=== PATIENT | female | born 1935 | race Caucasian/White ===

== ENCOUNTER → 2017-05-29 | Outpatient (CLI) | payer MEDICARE ==
[~2017-05-29] MED LIST: AMLO10TA2 PO; ASPI-496 PO; ATOR-2 PO; CARV6.252 PO; LISI-170 PO
== END | disposition home or self-care (01) ==
LOC: CVU 09:39
PROVIDERS: ATTEND Internal Medicine Cardiovascular Disease
DX: I87.2 Venous insufficiency (chronic) (peripheral) (principal)
CPT/HCPCS: 93970

== ENCOUNTER 2017-06-02 11:03 | Day surgery (SDC) | payer MEDICARE ==
[~2017-06-02] VITALS: Ht 158.8 cm; Wt 58.0 kg
[2017-06-02 11:23] VITALS: BP 156/89
[2017-06-02] MEDS ORDERED: LACTATED RINGERS 1,000 ML IV SCH (11:25)
[2017-06-02 12:53] LABS: BASOPHILS # (AUTO) 0.02 x10^3/uL (0-0.1); BASOPHILS % (AUTO) 0 % (0-1); EOSINOPHILS # (AUTO) 0.03 x10^3/uL (0-0.4); EOSINOPHILS % (AUTO) 0 % (1-7); LYMPHOCYTES # (AUTO) 0.63 x10^3/uL (1-3.4); LYMPHOCYTES % (AUTO) 6 % (22-44); MD NO; MEAN CORPUSCULAR HEMOGLOBIN 34.4 pg (27.0-34.8); MEAN CORPUSCULAR HGB CONC 33.8 g/dL (32.4-35.8); MEAN CORPUSCULAR VOLUME 101.8 fL (80-100); MEAN PLATELET VOLUME 8.8 fL (7.4-10.4); MONOCYTES # (AUTO) 0.27 x10^3/uL (0.2-0.8); MONOCYTES % (AUTO) 2 % (2-9); NEUTROPHILS # (AUTO) 10.48 x10^3/uL (1.8-6.8); NEUTROPHILS % (AUTO) 92 % (42-75); PLATELET COUNT 236 x10^3/uL (130-400); RED BLOOD COUNT 3.76 x10^6/uL (3.82-5.3); RED CELL DISTRIBUTION WIDTH 13.7 % (9.6-15.2)
[2017-06-02 13:00] LABS: ALBUMIN 4.5 g/dL (3.4-5.0); ANION GAP 11 mmol/L (5-15); CALCIUM 9.5 mg/dL (8.5-10.1); CHLORIDE 101 mmol/L (98-107)
[2017-06-02 13:03] LABS: ALANINE AMINOTRANSFERASE 23 U/L (12-78); ALKALINE PHOSPHATASE 89 U/L (45-117); BILIRUBIN,TOTAL 1.1 mg/dL (0.2-1.0); CREATININE 1.21 mg/dL (0.55-1.02); TOTAL PROTEIN 7.8 g/dL (6.4-8.2)
[2017-06-02] MEDS ORDERED: EPINEPHRINE 1 MG/ML, 1ML ONE (13:20)
[2017-06-02] MEDS ORDERED: PHENYLEPHRINE NASAL 0.25%, 15ML SPRAY ONE (13:20)
[2017-06-02] MEDS ORDERED: BUPIVACAINE/PF 0.5% ONE (13:20)
[2017-06-02] MEDS ORDERED: CLINDAMYCIN 150 MG/ML, 6ML ONE (13:49)
[2017-06-02] MEDS ORDERED: FENTANYL PF 100 MCG/2ML ONE ×2 (13:53→14:36)
[2017-06-02] MEDS ORDERED: DEXAMETHASONE 4 MG/ML, 1ML ONE (13:53)
[2017-06-02] MEDS ORDERED: PROPOFOL 10 MG/ML, 20ML ONE (13:53)
[2017-06-02] MEDS ORDERED: ONDANSETRON 2MG/ML, 2ML ONE (13:53)
[2017-06-02] MEDS ORDERED: SUCCINYLCHOLINE 20 MG/ML, 10ML ONE (13:53)
[2017-06-02] MEDS ORDERED: PIPERACILLIN/TAZO/PMX 3.375GM 50 ML ONE (13:58)
[2017-06-02] MEDS ORDERED: OXYcodone 5 MG/5 ML ORAL.SOL UDC PO PRN (14:30)
[2017-06-02] MEDS ORDERED: PROMETHAZINE 25 MG/ML, 1ML IV PRN (14:30)
[2017-06-02] MEDS ORDERED: LABETALOL 5MG/ML, 20ML IV PRN (14:30)
[2017-06-02] MEDS ORDERED: ACETAMINOPHEN 325 MG TABLET PO PRN (14:30)
[2017-06-02] MEDS ORDERED: HYDROmorphone 1 MG/ML, 1ML IV PRN (14:30)
[2017-06-02] MEDS ORDERED: ALBUTEROL SULFATE 2.5 MG/3 ML NPPB PRN (14:30)
[2017-06-02] MEDS ORDERED: PROMETHAZINE 12.5 MG SUPP PR PRN (14:30)
[2017-06-02] MEDS ORDERED: hydrALAzine 20 MG/ML, 1ML IV PRN (14:30)
[2017-06-02] MEDS: FENTANYL PF 100 MCG/2ML IV PRN ×2 (14:50→15:03)
[2017-06-02] MEDS ORDERED: OXYcodone 5 MG/5 ML ORAL.SOL UDC ONE (14:52)
[2017-06-02] MEDS ORDERED: ACETAMINOPHEN 650 MG/20.3 ML UDC ONE (14:52)
== END 2017-06-02 18:20 | disposition home or self-care (01) ==
LOC: EDBD → OUT 11:03
PROVIDERS: ATTEND Specialist
DX: J36 Peritonsillar abscess (principal); I25.10 Atherosclerotic heart disease of native coronary artery without angina pectoris; I10 Essential (primary) hypertension; Z88.5 Allergy status to narcotic agent
CPT/HCPCS: 36415; 42826; 80053; 85025; 87070; 87075; 87176; 87205; 88304; 93005; J0171; J0330; J1100; J2405; J2543; J2704; J3010; J3490

== ENCOUNTER → 2018-09-20 | Outpatient (CLI) | payer MEDICARE ==
[~2018-09-20] MED LIST changes: -AMLO10TA2 PO; +AMLO10TA8 PO; +REGADENOSON 0.4 MG/5 ML SYRINGE ONE
== END | disposition home or self-care (01) ==
LOC: CFH 08:05
PROVIDERS: ATTEND Internal Medicine Cardiovascular Disease
DX: I25.10 Atherosclerotic heart disease of native coronary artery without angina pectoris (principal); I10 Essential (primary) hypertension
CPT/HCPCS: 78452; 93017; A9502; J2785

== ENCOUNTER → 2019-04-12 | Outpatient (CLI) | payer MEDICARE ==
[~2019-04-12] MED LIST changes: -REGADENOSON 0.4 MG/5 ML SYRINGE ONE
== END | disposition home or self-care (01) ==
LOC: CFH 07:22
PROVIDERS: ATTEND Internal Medicine Cardiovascular Disease
DX: I08.8 Other rheumatic multiple valve diseases (principal); I70.0 Atherosclerosis of aorta
CPT/HCPCS: 93306; 93356

== ENCOUNTER 2020-02-14 11:58 | Outpatient (CLI) | payer MEDICARE ==
[~2020-02-14 11:58] MED LIST changes: +AMLO-211 PO; -AMLO10TA8 PO
== END 2020-02-14 23:59 | disposition home or self-care (01) ==
LOC: CFH 11:58
PROVIDERS: ATTEND Internal Medicine Cardiovascular Disease
DX: I10 Essential (primary) hypertension (principal)
CPT/HCPCS: 78452; 93017; A9502

== ENCOUNTER → 2020-04-09 | Outpatient (CLI) | payer MEDICARE ==
[~2020-04-09] MED LIST changes: +OMNIPAQUE 350 MG/ML, 100ML BOTTLE ONE
== END | disposition home or self-care (01) ==
LOC: CFH 12:57
PROVIDERS: ATTEND Nurse Practitioner
DX: I12.9 Hypertensive chronic kidney disease with stage 1 through stage 4 chronic kidney disease, or unspecified chronic kidney disease (principal); I70.1 Atherosclerosis of renal artery; N18.32 Chronic kidney disease, stage 3b
CPT/HCPCS: 74175; Q9967